=== PATIENT | female | born 1970 | race Caucasian/White ===

== ENCOUNTER 2017-09-14 13:43 | Emergency (ER) | payer MEDICAID ==
[~2017-09-14] VITALS: Ht 162.6 cm; Wt 69.0 kg
[~2017-09-14 13:43] MED LIST: HIGH BLOOD PRESSURE PO; KEPPRA 500 MG500 M1 PO; ZOFRAN ODT4 MG PO
[2017-09-14] MEDS ORDERED: AMLODIPINE BESY10 MG PO (13:53)
[2017-09-14] MEDS ORDERED: XANAX1 MG PO (13:54)
[2017-09-14] MEDS ORDERED: ZOFRAN ODT4 MG PO (14:51)
[2017-09-14] MEDS ORDERED: IBUPROFEN 800800 MG PO (14:51)
[2017-09-14 15:27] VITALS: BP 104/65
== END 2017-09-14 15:30 | disposition home or self-care (01) ==
LOC: M.ERS 13:43
DX: R51 Headache (principal); F32.9 Major depressive disorder, single episode, unspecified; I10 Essential (primary) hypertension; F41.9 Anxiety disorder, unspecified; M54.9 Dorsalgia, unspecified; Z88.4 Allergy status to anesthetic agent; Z88.8 Allergy status to other drugs, medicaments and biological substances